=== PATIENT | female | born 1965 | race African-American/Black ===

== ENCOUNTER 2018-02-25 19:01 | Emergency (ER) | payer MEDICARE, MEDICAID | END 2018-02-25 21:32 | disposition home or self-care (01) | LOC: FTE 19:01 | DX: N61.0 Mastitis without abscess (principal); Z85.3 Personal history of malignant neoplasm of breast | CPT/HCPCS: 99283 ==

== ENCOUNTER 2018-03-24 02:57 | Emergency (ER) | payer MEDICARE, MEDICAID ==
[2018-03-24] MEDS ORDERED: CLINDAMYCIN 900 MG/D5W (PMX) 50 ML IVPB (04:46)
[2018-03-24] MEDS: SOD CHLORIDE 0.9% 1,000 ML IV (05:25)
[2018-03-24] MEDS: KETOROLAC 15 MG INJ IV (05:26)
[2018-03-24] MEDS: ONDANSETRON 4 MG INJ IV (05:26)
[2018-03-24 05:31] LABS: ADD MAN DIFF? NO
[2018-03-24 05:34] LABS: WHITE BLOOD COUNT 4.6 10^3/ul (4.8-10.8)
[2018-03-24 05:34] LABS: BASOPHILS % 0.4 % (0.0-2.0); EOSINOPHILS # 0.2 10^3/ul (0.0-0.5); EOSINOPHILS % 4.4 % (0.0-7.0); HEMATOCRIT 36.2 % (37.0-47.0); HEMOGLOBIN 12.1 g/dl (12.0-16.0); LYMPHOCYTES # 2.1 10^3/ul (0.8-2.9); LYMPHOCYTES % 44.7 % (15.0-51.0); MEAN CORPUSCULAR HEMOGLOBIN 30.5 pg (29.0-33.0); MEAN CORPUSCULAR HGB CONC 33.4 g/dl (32.0-37.0); MEAN CORPUSCULAR VOLUME 91.2 fl (82.0-101.0); MEAN PLATELET VOLUME 9.2 fl (7.4-10.4); MONOCYTE # 0.5 10^3/ul (0.3-0.9); MONOCYTES % 10.5 % (0.0-11.0); NEUTROPHIL # 1.8 10^3/ul (1.6-7.5); NEUTROPHILS % 39.8 % (39.0-77.0); PLATELET COUNT 283 10^3/UL (140-415); RED BLOOD COUNT 3.97 10^6/ul (4.20-5.40); RED CELL DISTRIBUTION WIDTH 13.7 % (11.5-14.5)
[2018-03-24] MEDS: CLINDAMYCIN 900 MG/D5W (PMX) 50 ML IVPB (05:43)
[2018-03-24 05:50] LABS: ANION GAP 12 (8-16); BLOOD UREA NITROGEN 12 mg/dl (7-20); CALCIUM 9.3 mg/dl (8.4-10.2); CARBON DIOXIDE 25 mmol/L (21-31); CHLORIDE 108 mmol/L (97-110); CREATININE 0.73 mg/dl (0.44-1.00); GLUCOSE 98 mg/dl (70-220); POTASSIUM 3.7 mmol/L (3.5-5.1); SODIUM 141 mmol/L (135-144)
[2018-03-24] MEDS: IOHEXOL 300MG/ML 150 ML BTL (06:22)
[2018-03-24] MEDS: SOD CHLORIDE 0.9% 100 ML (06:22)
[2018-03-24] MEDS: VANCOMYCIN 1 GM (PMX) 250 ML IVPB (07:10)
[2018-03-24 07:44] LABS: INR 0.87; PROTIME 11.9 Sec (11.9-14.9); PT RATIO 0.9
[2018-03-24 07:45] LABS: PARTIAL THROMBOPLASTIN TIME 28.6 Sec (25.0-35.0)
[2018-03-24] MEDS: FLUCONAZOLE 150 MG TAB PO (10:35)
== END 2018-03-24 10:41 | disposition home or self-care (01) ==
LOC: FTE 02:57
DX: N61.0 Mastitis without abscess (principal); R07.89 Other chest pain; Z85.3 Personal history of malignant neoplasm of breast
CPT/HCPCS: 36415; 71260; 80048; 81025; 85025; 85610; 85730; 87040; 96365; 96375; 99285-25

== ENCOUNTER 2019-03-30 16:47 | Inpatient (IN) | payer MEDICARE, OTHER, MEDICAID ==
[2019-03-30] MEDS: IBUPROFEN 600 MG TAB PO (19:35)
[2019-03-30] MEDS: CEFTRIAXONE 1 GM/50 ML (PMX) 50 ML IVPB (19:38)
[2019-03-30] MEDS: SODIUM CHLORIDE 0.9% 1L BAG IV* (19:38)
[2019-03-30] MEDS ORDERED: BISACODYL (EC) 5 MG TAB PO (22:00)
[2019-03-30] MEDS ORDERED: ACETAMINOPHEN 325 MG TAB PO (22:00)
[2019-03-30] MEDS ORDERED: HYDROCODONE/APAP (5/325) TAB PO (22:00)
[2019-03-30] MEDS ORDERED: ONDANSETRON 4 MG INJ IV (22:00)
[2019-03-30] MEDS: SOD CHLORIDE 0.9% 1,000 ML IV (22:52)
[2019-03-30] MEDS: NACL 0.9% 3 ML SYG IV (22:54)
[2019-03-31] MEDS: morphine 2 MG INJ IV (04:33)
[2019-03-31] MEDS: SOD CHLORIDE 0.9% 1,000 ML IV ×3 (07:39→20:31)
[2019-03-31] MEDS: DOCUSATE SODIUM 100 MG CAP PO (09:23)
[2019-03-31] MEDS: GUAIFENESIN/DM 5ML CUP PO ×2 (14:30→18:32)
[2019-03-31] MEDS: CEFTRIAXONE 2 GM/50 ML (PMX) 50 ML IVPB (20:31)
[2019-04-01] MEDS: DOCUSATE SODIUM 100 MG CAP PO (05:13)
[2019-04-01] MEDS: IBUPROFEN 400 MG TAB PO (05:13)
[2019-04-01] MEDS: IBUPROFEN 200 MG TAB PO (05:27)
[2019-04-01] MEDS: POLYETHYLENE GLYCOL 17 GM PACKET PO (10:12)
[2019-04-01] MEDS: IBUPROFEN 600 MG TAB PO (10:26)
== END 2019-04-01 14:30 | disposition home or self-care (01) | DRG 872 ==
LOC: E/R 16:47 → 2NE 21:18
DX: A41.9 Sepsis, unspecified organism (principal); N10 Acute pyelonephritis; B96.20 Unspecified Escherichia coli [E. coli] as the cause of diseases classified elsewhere; J20.9 Acute bronchitis, unspecified; Z85.3 Personal history of malignant neoplasm of breast; Z90.13 Acquired absence of bilateral breasts and nipples
CPT/HCPCS: 36415; 71045; 74176; 80048; 80053; 81001; 83605; 83690; 83735; 84484; 84703; 85025; 85610; 85730; 86140; 87040-91; 87086; 93005; 96365; 96366; 99285-25